=== PATIENT | male | born 1960 | race Caucasian/White ===

== ENCOUNTER 2017-07-02 05:39 | Outpatient (CLI) | payer OTHER ==
[~2017-07-02] VITALS: Ht 182.9 cm; Wt 107.0 kg
[2017-07-02] MEDS ORDERED: BUDE10.2 IH (15:36)
[2017-07-02] MEDS ORDERED: RT-ALBUINH IH (15:36)
[2017-07-02] MEDS ORDERED: DULO20CA PO (15:36)
[2017-07-02] MEDS ORDERED: LISI10TA2 PO (15:36)
[2017-07-02] MEDS ORDERED: GABA600T2 PO (15:36)
[2017-07-02] MEDS ORDERED: AMLO10TA2 PO (15:36)
[2017-07-09] MEDS ORDERED: PANT40TA2 PO (14:04)
[2017-07-09] MEDS ORDERED: SUCR1TAB36 PO (14:04)
== END 2017-07-02 15:37 ==
LOC: PREOP 05:39
PROVIDERS: ATTEND Surgery
DX: Z01.818 Encounter for other preprocedural examination (principal); Z12.11 Encounter for screening for malignant neoplasm of colon; K29.70 Gastritis, unspecified, without bleeding

== ENCOUNTER 2017-07-09 11:54 | Day surgery (SDC) | payer OTHER ==
[~2017-07-09] VITALS: Ht 182.9 cm; Wt 107.0 kg
[~2017-07-09 11:54] MED LIST: AMLO10TA2 PO; BUDE10.2 IH; DULO20CA PO; GABA600T2 PO; LISI10TA2 PO; RT-ALBUINH IH
[2017-07-09] MEDS ORDERED: LACTATED RINGERS 1,000 ML IV ONE (12:15)
[2017-07-09] MEDS ORDERED: LACTATED RINGERS 1,000 ML IV STA (12:17)
[2017-07-09 12:28] VITALS: BP 148/87
[2017-07-09] MEDS ORDERED: HURRICAINE EXT TUBE (BENZOCAINE) XX PRN (12:30)
[2017-07-09] MEDS ORDERED: PROPOFOL INJECTION 50 ML IV ONE (13:25)
[2017-07-09] MEDS ORDERED: MIDAZOLAM 2 MG/2 ML (VERSED) VIAL ONE (13:26)
--- NOTE | 2017-07-09 13:31 | Progress Note-Pre Operative ---
Pre-Operative Progress Note H&P Reviewed The H&P was reviewed, patient examined and no changes noted. Time Seen by Provider: 13:22 Date H&P Reviewed: Jul 09, 2017 Time H&P Reviewed: 13:25 Pre-Operative Diagnosis: Gastritis, Screening Colonoscopy DEWAYNE SIN DO Jul 09, 2017 13:31
--- NOTE | 2017-07-09 13:58 | Progress Note-Post Operative ---
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
--- NOTE | 2017-07-09 14:01 | Endoscopy Discharge Instruct ---
Endo Procedure/Findings Findings 1.: Duodenal Ulcer 2.: Gastric Ulcer 3.: Zafar's Esophagus 4.: Diverticulosis, Internal Hemorrhoids Discharge Instructions - Activity: You might feel a little sleepy until tomorrow. This is due to the medicine you received to relax you. Until tomorrow, you should: NOT drive a car, operate machinery or power tools. NOT drink any alcoholic beverages. NOT make any important decisions or sign importortant papers. Do not return to work until tomorrow, unless otherwise instructed. Resume previous activities tomorrow. Diet: Start by taking liquids. If you tolerate liquids, advance to solid food. Instructions: 1.: Reflux Diet, No ASA/NSAIDS for 1 week, EGD in 6-8 weeks Notify Physician - If you experience excessive bleeding, unusual abdominal pain, fever, or chest pain, contact your doctor immediately. Follow-Up: - I have received and understand the above instructions and will call my doctor if I have any further questions. Patient Signature Date Nurse Signature Other (Relationship) DEWAYNE SIN DO Jul 09, 2017 14:01
[2017-07-09] MEDS ORDERED: PANT40TA2 PO (14:04)
[2017-07-09] MEDS ORDERED: SUCR1TAB36 PO (14:04)
--- NOTE | 2017-07-09 14:06 | Anesthesia-General Post-Op ---
MAC Patient Condition Mental Status/LOC: Same as Preop Cardiovascular: Satisfactory Nausea/Vomiting: Absent Respiratory: Satisfactory Pain: Controlled Complications: Absent Post Op Complications Complications None Follow Up Care/Instructions Patient Instructions None needed. Anesthesiology Discharge Order Discharge Order Patient is doing well, no complaints, stable vital signs, no apparent adverse anesthesia problems. Patient tolerated the sedation and procedure well. BHASKAR VELA DO Jul 09, 2017 14:06
[2017-07-09 14:20] VITALS: BP 138/81
[2017-07-09 14:50] VITALS: BP 145/82
[2017-07-09 14:55] VITALS: BP 145/82
--- NOTE | 2017-07-11 01:08 | OPERATIVE REPORT ---
DATE OF SERVICE: 07/09/2017 PREOPERATIVE DIAGNOSES: 1. Heartburn. 2. Screening colonoscopy. POSTOPERATIVE DIAGNOSES: 1. Duodenal ulcer. 2. Gastric ulcer. 3. Esophagitis with possible Zafar's esophagus. 4. Diverticula. 5. Internal hemorrhoids. 6. Poor prep. PROCEDURES: 1. EGD with biopsy. 2. Colonoscopy. SURGEON: Dr. Moya. EMBEDDED LINUX ENGINEER: None. ANESTHESIA: IV sedation by the STRUCTURAL DRAFTSMAN. BLOOD LOSS: Scant. SPECIMENS: 1. One duodenal biopsy. 2. One gastric biopsy. 3. One esophageal biopsy at the GE junction. INDICATION FOR PROCEDURE: The patient is a 57-year-old male who has never had a colonoscopy and needs one for screening. He also has complaints of heartburn and has taken medication for heartburn in the past. He does not think it helped and needed EGD as well. FINDINGS: The patient had what looked like possibly Zafar's esophagus. He also had few small ulcers in the duodenum as well as one large when nothing bleeding at this time. He also had some small ulcers in the antrum as well as the body of the stomach and then had some creeping up of the GE junction, which looked like possibly Zafar's esophagus. When looking in the colon, the patient had some diverticula. He also had some internal hemorrhoids, but he had a very poor prep. There was formed fecal material throughout the colon all the way from the rectum and sigmoid all the way to the ascending colon, could not get clear this out. PROCEDURE NOTE: After informed consent was obtained, the patient was brought to the endoscopy suite, placed in the bed in left lateral decubitus position. He was administered IV sedation by STRUCTURAL DRAFTSMAN who then monitored his vital signs the entire time, heart rate, blood pressure and pulse ox. The scope was inserted down the mouth into the esophagus and down to the GE junction noted some creeping up of the Z-line. Pushed into the stomach and then in the stomach in the antrum noted some ulcers firstly in the first portion of duodenum and saw 2 or 3 small ulcers and 1 large ulcer that looked like a blood in the past that was not currently bleeding and there may have been some little bit of oozing of blood in the stomach. It looked like there was a little bit of blood. Also noted some ulcers in the stomach around the antrum as well as up in the cardia. Elected to do a biopsy in the duodenum, did a biopsy in the duodenum and then did a biopsy of antrum. Then elected to pull back up, saw possibly a small hiatal hernia. Did a biopsy of the GE junction to see to rule out Zafar's esophagus and then pulled the scope up the esophagus and out the mouth. The patient tolerated this part of procedure. Switched gloves and switched cameras and went down below to perform the colonoscopy, inserted the scope noted a little bit of fecal material in the rectum and then pushed pass this into the sigmoid noted diverticula. Pictures were taken, but the patient continued to have formed fecal material. I was able to go to the outside of fecal material all the way up into the ascending colon thought I saw the cecum, but there was continued formed fecal material throughout the colon could not get this to clear tried to suction it up, tried to break it up with a saline flush, could not get this to push to washout and so at this point removed the scope gently up the ascending colon, hepatic flexure down the transverse colon, past the splenic flexure and descending colon then down into the sigmoid, noted some internal hemorrhoids, but again unable to really clear the colon because of the retained fecal material. This was a very poor prep. The scope was removed. The patient tolerated the procedure. He was recovered in the endoscopy suite. Job ID: [id number] DocumentID: [id number] Dictated Date: 07/10/2017 15:05:56 Manager Of Program Date: 07/11/2017 00:27:22 Dictated By: DO KALINA ESQUIVEL
== END 2017-07-09 14:55 | disposition home or self-care (01) ==
LOC: ENDO 11:54
PROVIDERS: ATTEND Surgery
DX: Z12.11 Encounter for screening for malignant neoplasm of colon (principal); K26.9 Duodenal ulcer, unspecified as acute or chronic, without hemorrhage or perforation; K25.9 Gastric ulcer, unspecified as acute or chronic, without hemorrhage or perforation; K21.0 Gastro-esophageal reflux disease with esophagitis; K57.30 Diverticulosis of large intestine without perforation or abscess without bleeding; K64.8 Other hemorrhoids; I10 Essential (primary) hypertension; F17.210 Nicotine dependence, cigarettes, uncomplicated; G62.9 Polyneuropathy, unspecified; F32.9 Major depressive disorder, single episode, unspecified
CPT/HCPCS: 88305; 88342

== ENCOUNTER 2017-07-29 05:51 | Outpatient (CLI) | payer OTHER ==
[~2017-07-29] VITALS: Ht 182.9 cm; Wt 107.0 kg
[~2017-07-29 05:51] MED LIST changes: +PANT40TA2 PO; +SUCR1TAB36 PO
[2017-07-29] MEDS ORDERED: DULO40CA2 PO (15:09)
[2017-07-29] MEDS ORDERED: LISI40TA PO (15:09)
== END 2017-07-29 15:12 ==
LOC: PREOP 05:51
PROVIDERS: ATTEND Surgery
DX: Z01.818 Encounter for other preprocedural examination (principal); Z12.11 Encounter for screening for malignant neoplasm of colon

== ENCOUNTER 2017-08-12 07:57 | Day surgery (SDC) | payer OTHER ==
[~2017-08-12] VITALS: Ht 182.9 cm; Wt 107.0 kg
[~2017-08-12 07:57] MED LIST changes: +DULO40CA2 PO; +LISI40TA PO
[2017-08-12] MEDS ORDERED: LACTATED RINGERS 1,000 ML IV ONE (08:05)
[2017-08-12] MEDS ORDERED: LACTATED RINGERS 1,000 ML IV STA (08:08)
[2017-08-12 08:18] VITALS: BP 127/84
--- NOTE | 2017-08-12 08:38 | Progress Note-Pre Operative ---
Pre-Operative Progress Note H&P Reviewed The H&P was reviewed, patient examined and no changes noted. Time Seen by Provider: 08:31 Date H&P Reviewed: August 12, 2017 Time H&P Reviewed: 08:33 Pre-Operative Diagnosis: Screening colonoscopy, Diverticula, Poor prep DEWAYNE SIN DO August 12, 2017 08:38
[2017-08-12] MEDS ORDERED: PROPOFOL INJECTION 50 ML IV ONE (09:03)
[2017-08-12] MEDS ORDERED: MIDAZOLAM 2 MG/2 ML (VERSED) VIAL ONE ×2 (09:04)
[2017-08-12] MEDS ORDERED: proPOfol 200 MG/20 ML (DIPRIVAN) VIAL IV ONE ×3 (09:34→09:57)
--- NOTE | 2017-08-12 10:13 | Progress Note-Post Operative ---
Post-Operative Progess Note Surgeon (s)/Sewing Machine Maintenance Mechanic (s) Surgeon DEWAYNE SIN DO Sewing Machine Maintenance Mechanic: none Pre-Operative Diagnosis Screening colonoscopy, Diverticula, Poor prep Post-Operative Diagnosis Colon Polyps Diverticula Int Hemorrhoids Procedure & Operative Findings Date of Procedure 08/12/17 Procedure Performed/Findings Colonoscopy with snare polypectomy Anesthesia Type IV sedation by ASSEMBLER CONVERTIBLE TOP Estimated Blood Loss Estimated blood loss (mL): scant Specimens/Packing Specimens Removed Cecal polyp Descending colon polyp Sigmoid colon polyp Rectal polyp DEWAYNE SIN DO August 12, 2017 10:13
--- NOTE | 2017-08-12 10:14 | Endoscopy Discharge Instruct ---
Endo Procedure/Findings Findings 1.: Polyp 2.: Diverticulosis 3.: Internal Hemorrhoids Discharge Instructions - Activity: You might feel a little sleepy until tomorrow. This is due to the medicine you received to relax you. Until tomorrow, you should: NOT drive a car, operate machinery or power tools. NOT drink any alcoholic beverages. NOT make any important decisions or sign importortant papers. Do not return to work until tomorrow, unless otherwise instructed. Resume previous activities tomorrow. Diet: Start by taking liquids. If you tolerate liquids, advance to solid food. Make appointment for one week. Notify Physician - If you experience excessive bleeding, unusual abdominal pain, fever, or chest pain, contact your doctor immediately. Follow-Up: - I have received and understand the above instructions and will call my doctor if I have any further questions. Patient Signature Date Nurse Signature Other (Relationship) DEWAYNE SIN DO August 12, 2017 10:14
[2017-08-12 10:30] VITALS: BP 116/72
[2017-08-12 10:35] VITALS: BP 116/72
[2017-08-12 10:40] VITALS: BP 117/90
[2017-08-12 10:45] VITALS: BP 124/75
[2017-08-12 11:20] VITALS: BP 124/75
--- NOTE | 2017-08-12 11:48 | Anesthesia-General Post-Op ---
MAC Patient Condition Mental Status/LOC: Same as Preop Cardiovascular: Satisfactory Nausea/Vomiting: Absent Respiratory: Satisfactory Pain: Controlled Complications: Absent Post Op Complications Complications None Follow Up Care/Instructions Patient Instructions None needed. Anesthesiology Discharge Order Discharge Order Patient is doing well, no complaints, stable vital signs, no apparent adverse anesthesia problems. No complications reported per nursing. EWELINA FINCH CRNA August 12, 2017 11:48
--- NOTE | 2017-08-12 15:07 | OPERATIVE REPORT ---
DATE OF SERVICE: PREOPERATIVE DIAGNOSES: Screening colonoscopy, history diverticula as well as a left lower quadrant pain. POSTOPERATIVE DIAGNOSES: 1. Colon polyps. 2. Diverticula. 3. Internal hemorrhoids. PROCEDURE: Colonoscopy with snare polypectomy. SURGEON: Alonso Moya DO. LOOP TACKER: None. ANESTHESIA: IV sedation by ACOUSTICAL ENGINEER. SPECIMEN: One polyp from the cecum, one polyp from the descending colon, one polyp from the sigmoid colon and one polyp from the rectum. BLOOD LOSS: Scant. FLUIDS: Per anesthesia. POSTOPERATIVE CONDITION: Stable. INDICATION FOR PROCEDURE: The patient is a 57-year-old male who needed a screening colonoscopy, had one attempted, but had retained fecal material, had to have repeated. FINDINGS: During this one, the patient had large diverticula, multiple throughout the colon. He also had 4 polyps, one just outside the cecum, one at more proximal portion of the descending colon, one in the sigmoid colon and then one in the rectum. He also had some small internal hemorrhoids. PROCEDURE NOTE: After informed consent was obtained, the patient was brought to the endoscopy suite and placed in the bed in the left lateral decubitus position. He was administered IV sedation by the ACOUSTICAL ENGINEER who then monitored his vitals the entire time, heart rate, blood pressure and pulse ox and the scope was inserted, pushed all the way to about 140 cm, able to get to the cecum, took a picture of the appendiceal orifice and then slowly withdrew the scope insufflating to look circumferentially at the truong looking at the cecum and then just outside the cecal cap, saw a polyp, took a picture of this and then did a snare polypectomy. Able to suction this up and then able to continue up the ascending colon to the hepatic flexure, then down the transverse colon to the splenic flexure and just past the splenic flexure, into the descending colon, saw another polyp, did a snare polypectomy then continued down to the base of the descending colon and the start of the sigmoid colon, saw another polyp, did another snare polypectomy. This again throughout here, there were multiple diverticula continued down and then into the rectum, saw another polyp, did a snare polypectomy of this and then into the rectal vault, retroflexed in the rectal vault, took a picture of internal hemorrhoids and then removed the scope. The patient tolerated the procedure and he was recovered in the endoscopy suite. Job ID: [id number] DocumentID: [id number] Dictated Date: 08/12/2017 10:12:09 Paper Twister Date: 08/12/2017 15:07:05 Dictated By: ALONSO MOYA DO
== END 2017-08-12 11:20 | disposition home or self-care (01) ==
LOC: ENDO 07:57
PROVIDERS: ATTEND Surgery
DX: Z12.11 Encounter for screening for malignant neoplasm of colon (principal); K63.5 Polyp of colon; K57.30 Diverticulosis of large intestine without perforation or abscess without bleeding; I10 Essential (primary) hypertension; J43.9 Emphysema, unspecified; G62.9 Polyneuropathy, unspecified; F17.210 Nicotine dependence, cigarettes, uncomplicated; K26.9 Duodenal ulcer, unspecified as acute or chronic, without hemorrhage or perforation; K25.9 Gastric ulcer, unspecified as acute or chronic, without hemorrhage or perforation; K22.70 Barrett's esophagus without dysplasia; Z79.899 Other long term (current) drug therapy
CPT/HCPCS: 88305

== ENCOUNTER 2017-12-17 05:40 | Outpatient (CLI) | payer OTHER ==
[~2017-12-17] VITALS: Ht 182.9 cm; Wt 107.0 kg
[~2017-12-17 05:40] MED LIST changes: -AMLO10TA2 PO; +AMLO10TA6 PO
[2017-12-17] MEDS ORDERED: HYDR25TA4 PO (10:45)
[2017-12-17] MEDS ORDERED: TAMS0.4C2 PO (10:45)
[2017-12-17] MEDS ORDERED: CYCL10TA9 PO (10:45)
== END 2017-12-17 10:50 | disposition home or self-care (01) ==
LOC: PREOP 05:40
PROVIDERS: ATTEND Surgery
DX: Z01.818 Encounter for other preprocedural examination (principal)

== ENCOUNTER 2017-12-22 12:19 | Day surgery (SDC) | payer OTHER ==
[~2017-12-22] VITALS: Ht 182.9 cm; Wt 107.0 kg
[~2017-12-22 12:19] MED LIST changes: +CYCL10TA9 PO; +HYDR25TA4 PO; +TAMS0.4C2 PO
[2017-12-22] MEDS ORDERED: LACTATED RINGERS 1,000 ML IV STA (12:25)
[2017-12-22] MEDS ORDERED: LACTATED RINGERS 1,000 ML IV ONE (12:25)
[2017-12-22] MEDS ORDERED: HURRICAINE EXT TUBE (BENZOCAINE) XX PRN (12:30)
[2017-12-22 12:36] VITALS: BP 121/82
[2017-12-22] MEDS ORDERED: MIDAZOLAM 2 MG/2 ML (VERSED) VIAL ONE (13:36)
[2017-12-22] MEDS ORDERED: proPOfol 200 MG/20 ML (DIPRIVAN) VIAL IV ONE (13:36)
--- NOTE | 2017-12-22 13:39 | Progress Note-Pre Operative ---
Pre-Operative Progress Note H&P Reviewed The H&P was reviewed, patient examined and no changes noted. Time Seen by Provider: 13:35 Date H&P Reviewed: Dec 22, 2017 Time H&P Reviewed: 13:35 Pre-Operative Diagnosis: Hx of Zafar's Esophagus DEWAYNE SIN DO Dec 22, 2017 13:39
--- NOTE | 2017-12-22 14:01 | Progress Note-Post Operative ---
Post-Operative Progess Note Surgeon (s)/Senior Internal Auditor (s) Surgeon DEWAYNE SIN DO Senior Internal Auditor: none Pre-Operative Diagnosis Hx of Zafar's Esophagus Post-Operative Diagnosis Same plus Gastric Ulcers and Gastritis Procedure & Operative Findings Date of Procedure 12/22/17 Procedure Performed/Findings EGD with biopsy Anesthesia Type IV sedation by GRINDER SET UP OPERATOR EXTERNAL Estimated Blood Loss Estimated blood loss (mL): scant Specimens/Packing Specimens Removed Antral bx GE jxn bx, 4 quadrants DEWAYNE SIN DO Dec 22, 2017 14:00
--- NOTE | 2017-12-22 14:02 | Endoscopy Discharge Instruct ---
Endo Procedure/Findings Findings 1.: Zafar's Esophagus 2.: Gastric Ulcer Discharge Instructions - Activity: You might feel a little sleepy until tomorrow. This is due to the medicine you received to relax you. Until tomorrow, you should: NOT drive a car, operate machinery or power tools. NOT drink any alcoholic beverages. NOT make any important decisions or sign importortant papers. Do not return to work until tomorrow, unless otherwise instructed. Resume previous activities tomorrow. Diet: Start by taking liquids. If you tolerate liquids, advance to solid food. Make an appointment for 1 week Instructions: 1.: EGD in 6-8 weeks Notify Physician - If you experience excessive bleeding, unusual abdominal pain, fever, or chest pain, contact your doctor immediately. Follow-Up: - I have received and understand the above instructions and will call my doctor if I have any further questions. Patient Signature Date Nurse Signature Other (Relationship) DEWAYNE SIN DO Dec 22, 2017 14:02
[2017-12-22 14:20] VITALS: BP 134/76
[2017-12-22 14:35] VITALS: BP 121/82
[2017-12-22 15:23] VITALS: BP 121/82
--- NOTE | 2017-12-22 21:15 | OPERATIVE REPORT ---
DATE OF SERVICE: 12/22/2017 PREOPERATIVE DIAGNOSIS: Zafar's esophagus. POSTOPERATIVE DIAGNOSES: 1. Gastric ulcer. 2. Gastritis. 3. Zafar's esophagus. PROCEDURE: EGD with biopsy. SURGEON: Alonso Moya DO COMMERCIAL MANAGEMENT ACCOUNTANT: None. ANESTHESIA: IV sedation by the JUNIOR DESIGNER. SPECIMENS: 1. Biopsy of gastric ulcer. 2. Biopsies at the GE junction at the 12 o'clock, 3 o'clock, 6 o'clock and 9 o'clock position. BLOOD LOSS: Scant. FLUIDS: Per anesthesia. POSTOPERATIVE CONDITION: Stable. INDICATION FOR PROCEDURE: The patient is a 57-year-old male who has a history of Zafar's esophagus and needs an EGD to recheck this diagnosis. FINDINGS: The patient had some gastritis and looked like gastric ulcers. Pictures were taken. He also looked like he had possibly worsening of the Zafar's esophagus at the GE junction. Biopsy was done. He also had a small hiatal hernia. PROCEDURE NOTE: After informed consent was obtained, the patient was brought to the endoscopy suite, placed in the bed left in left lateral decubitus position, administered IV sedation by the JUNIOR DESIGNER, then monitored his vitals the entire time, heart rate, blood pressure and pulse ox. A scope was inserted down the mouth through the esophagus and into the stomach, pushed towards the pylorus and then noted some ulcers as well as gastritis and took a picture of this. Pushed into the duodenum, duodenum looked fine, took a picture of this, backed up into the antrum. I did a biopsy of one of the ulcers, then pulled the scope back, retroflexed, saw small hiatal hernia and then pulled into the esophagus. The GE junction had some pretty severe creeping up of the Z-line. Biopsies were done at 3, 6, 9 and 12 o'clock position to be sent to see if the Zafar's esophagus had gotten worse. The rest of the esophagus looked good, pulled the scope out. The patient tolerated the procedure and he was recovered in the endoscopy suite. Job ID: [id number] DocumentID: [id number] Dictated Date: 12/22/2017 18:13:23 Industrial Organizational Psychologist Date: 12/22/2017 21:14:32 Dictated By: ALONSO MOYA DO
== END 2017-12-22 14:50 | disposition home or self-care (01) ==
LOC: ENDO 12:19
PROVIDERS: ATTEND Surgery
DX: K22.70 Barrett's esophagus without dysplasia (principal); K25.9 Gastric ulcer, unspecified as acute or chronic, without hemorrhage or perforation; K29.70 Gastritis, unspecified, without bleeding; K44.9 Diaphragmatic hernia without obstruction or gangrene; I10 Essential (primary) hypertension; G62.9 Polyneuropathy, unspecified; J43.9 Emphysema, unspecified; J45.909 Unspecified asthma, uncomplicated; F32.9 Major depressive disorder, single episode, unspecified; K21.9 Gastro-esophageal reflux disease without esophagitis; F17.210 Nicotine dependence, cigarettes, uncomplicated; Z79.899 Other long term (current) drug therapy

== ENCOUNTER → 2018-09-18 | Outpatient (CLI) | payer OTHER ==
[~2018-09-18] MED LIST changes: -AMLO10TA6 PO; +AMLO10TA7 PO; -GABA600T2 PO; +GBPN600T PO
--- NOTE | 2018-09-18 17:36 | Diagnostic Imaging Report ---
PROCEDURE: US bilateral lower extremity arterial. TECHNIQUE: Multiple real-time grayscale images are obtained through both lower extremity arterial systems with color Doppler imaging and color Doppler spectral analysis. DATE: September 18, 2018. INDICATION: 58-year-old male, peripheral vascular disease. No additional provided history. COMPARISON: None. FINDINGS: Peak systolic velocity in the right common femoral artery measures 158 cm/s with normal triphasic waveform. Peak systolic velocity in the right deep femoral artery measures 113 cm/s. Peak systolic velocity in the right proximal superficial femoral artery measures 132 cm/s, 138 cm/s in the mid right superficial femoral artery and 120 cm/s distally. Peak systolic left velocity in the right popliteal artery measures 102 cm/s. Peak systolic velocity in the right distal posterior tibial artery measures 108 cm/s. Peak systolic velocity in the distal right anterior tibial artery measures 138 cm/s with loss of normal triphasic waveform. Peak systolic velocity in the right dorsalis pedis artery measures 68 cm/s. Peak systolic velocity in left common femoral artery measures 120 cm/s with normal triphasic waveform. Peak systolic velocity in the left deep femoral artery measures 109 cm/s. Peak systolic velocity in the left proximal superficial femoral artery measures 119 cm/s, 115 cm/s in the mid left superficial femoral artery and 115 cm/s distally. Peak systolic velocity in the left popliteal artery measures 103 cm/s. Peak systolic velocity in the left distal posterior tibial artery measures 140 cm/s. Peak systolic velocity in the left distal anterior tibial artery measures 150 cm/s. Peak systolic velocity in the left dorsalis pedis artery measures 138 cm/s. There are normal triphasic waveforms throughout the visualized left lower extremity arterial vasculature. IMPRESSION: Patent's visualized bilateral lower extremity arterial vasculature without significantly elevated velocities. There is loss of normal triphasic waveforms beginning at the level of the right distal anterior tibial artery. There are normal triphasic waveforms throughout the imaged left lower extremity arterial vasculature. Dictated by: Dictated on workstation # [id number]
== END ==
LOC: RAD 14:06
PROVIDERS: ATTEND Internal Medicine Interventional Cardiology
DX: I73.9 Peripheral vascular disease, unspecified (principal)
CPT/HCPCS: 93925

== ENCOUNTER → 2018-09-24 | Outpatient (CLI) | payer OTHER | LOC: CARD 10:51 | PROVIDERS: ATTEND Internal Medicine Interventional Cardiology | DX: I35.2 Nonrheumatic aortic (valve) stenosis with insufficiency (principal); I10 Essential (primary) hypertension; E78.2 Mixed hyperlipidemia; J44.1 Chronic obstructive pulmonary disease with (acute) exacerbation; I73.9 Peripheral vascular disease, unspecified; Z72.0 Tobacco use | CPT/HCPCS: 93306; 93922 ==

== ENCOUNTER 2018-10-08 08:07 | Outpatient (RCR) | payer OTHER ==
[~2018-10-08 08:07] MED LIST changes: -CATHETER FLUSH 10 ML SYR IV PRN; -REGADENOSON 0.4 MG/5 ML SYR (LEXISCAN) IV ONE
[2018-10-08] MEDS ORDERED: REGADENOSON 0.4 MG/5 ML SYR (LEXISCAN) IV ONE ×2 (08:45→09:11)
[2018-10-10 14:06] VITALS: BP 193/95
--- NOTE | 2018-10-10 14:06 | Cardiology Stress Test Report ---
Stress Test Report Type of NM Stress Test: Test Type: LEXISCAN 0.4MG/5ML Date of Procedure/Referring: Date of Procedure: Oct 08, 2018 PCP Melvin Dozier MD Admitting Physician No,Local Physician Indications: Chest pain Baseline Heart Rate: 60 Baseline Blood Pressure: Blood Pressure Systolic: 193 Blood Pressure Diastolic: 95 Baseline EKG: Baseline EKG: sinus rhythm Summary & Conclusion: Summary: The patient was brought to the stress lab after informed consent was taken. St ress test was performed according to the Lexiscan protocol. 0.4 mg of IV Lexiscan was given. Low-grade exercise was performed. Baseline EKG showed sinus rhythm at 60 BPM. Initial blood pressure was 193/95 mmHg. Maximum heart rate was 118 bpm and blood pressure 214/107 mmHg. Patient did not have any chest pain, arrhythmias or ST segment changes during the stress test. 10.2 mCi of Myoview were given for rest imaging and 30 mCi of Myoview given for stress imaging. Transient ischemic dilatation score 1.01 , EF 60 percent. Normal wall motion. Mild inferior apical reversible defect. Conclusion: Pharmacological stress test was negative for ischemia. Normal LV function with no wall motion abnormalities. Mild inferior apical reversible defect. Clinical correlation is recommended. Melvin DOZIER MD Oct 10, 2018 2:06 pm
[2018-11-26] MEDS ORDERED: CEPH500T PO (12:41)
[2018-11-27] MEDS ORDERED: ASPI-983 PO (11:34)
[2018-11-27] MEDS ORDERED: ATOR80TA76 PO (11:34)
[2018-11-27] MEDS ORDERED: METO-387 PO (11:34)
[2018-11-27] MEDS ORDERED: TICA90TA PO (11:34)
== END 2019-01-06 | disposition home or self-care (01) ==
LOC: CARD 08:07
PROVIDERS: ATTEND Internal Medicine Interventional Cardiology
DX: R00.2 Palpitations (principal)

== ENCOUNTER → 2018-10-08 | Outpatient (CLI) | payer OTHER ==
[~2018-10-08] MED LIST changes: +CATHETER FLUSH 10 ML SYR IV PRN; +REGADENOSON 0.4 MG/5 ML SYR (LEXISCAN) IV ONE
[2018-10-08 09:42] VITALS: BP 193/95
[2018-10-08 09:49] VITALS: BP 206/106
== END ==
LOC: CARD 08:06
PROVIDERS: ATTEND Internal Medicine Interventional Cardiology
DX: I35.0 Nonrheumatic aortic (valve) stenosis (principal); I35.1 Nonrheumatic aortic (valve) insufficiency; I10 Essential (primary) hypertension; E78.2 Mixed hyperlipidemia; J44.1 Chronic obstructive pulmonary disease with (acute) exacerbation; I73.9 Peripheral vascular disease, unspecified; Z72.0 Tobacco use
CPT/HCPCS: 78452; 93017

== ENCOUNTER 2018-11-26 11:35 | Day surgery (SDC) | payer OTHER ==
[2018-11-26] VITALS (9 sets, daily range): BP systolic 134–193; BP diastolic 86–106
[~2018-11-26] VITALS: Ht 182.9 cm; Wt 98.9 kg
[2018-11-26] MEDS ORDERED: HEParin (CATH LAB) 2,000 ML IV ONE (11:52)
[2018-11-26] MEDS ORDERED: LIDOCAINE 1% INJ 20 ML 20 ML VIAL ONE (11:52)
[2018-11-26] MEDS ORDERED: NS IV 1000 ML 1,000 ML ONE (11:52)
[2018-11-26] MEDS ORDERED: NS IV 1000 ML 1,000 ML IV SCH (12:04)
[2018-11-26 12:32] LABS: HEMOGLOBIN 15.3 G/DL (13.3-17.7); RED CELL DISTRIBUTION WIDTH 13.7 % (10.0-14.5); WHITE BLOOD COUNT 11.6 10^3/uL (4.3-11.0)
[2018-11-26] MEDS ORDERED: CEPH500T PO (12:41)
[2018-11-26 12:44] LABS: PROTHROMBIN TIME PATIENT 13.1 SEC (12.2-14.7)
[2018-11-26 12:50] LABS: ALANINE AMINOTRANSFERASE 20 U/L (0-55); ALBUMIN 4.5 GM/DL (3.2-4.5); ALKALINE PHOSPHATASE 91 U/L (40-136); BILIRUBIN,TOTAL 0.5 MG/DL (0.1-1.0); BUN/CREATININE RATIO 24; CALCIUM 9.4 MG/DL (8.5-10.1); CARBON DIOXIDE 24 MMOL/L (21-32); CHLORIDE 108 MMOL/L (98-107); CREATININE SERUM 0.85 MG/DL (0.60-1.30); GFR ESTIMATED > 60; GLUCOSE 105 MG/DL (70-105); SODIUM 141 MMOL/L (135-145); TOTAL PROTEIN 7.7 GM/DL (6.4-8.2)
[2018-11-26] MEDS ORDERED: fentaNYL INJECTION 100 MCG/2 ML AMP ONE (15:17)
[2018-11-26] MEDS ORDERED: HEParin 1000 UNIT/ML (10ML VIAL) FOR BOLUS ONE (15:17)
[2018-11-26] MEDS ORDERED: VERAPAMIL 5 MG/2 ML (CALAN) VIAL IV ONE (15:17)
[2018-11-26] MEDS ORDERED: NITRO DRIP 25000 MCG/D5W 250 ML IV ONE (15:17)
[2018-11-26] MEDS ORDERED: MIDAZOLAM 5 MG/5 ML (VERSED) VIAL ONE (15:17)
[2018-11-26] MEDS ORDERED: ASPIRIN 325 MG (5 GR) TABLET ONE (15:50)
[2018-11-26] MEDS ORDERED: TICAGRELOR 90 MG TABLET (BRILINTA) PO ONE (15:50)
--- NOTE | 2018-11-26 16:17 | Cardiac Procedure Note-CS/ASA ---
Pre-Procedure Note Pre-Op Procedure Note H&P Reviewed The H&P was reviewed, patient examined and no changes noted. Date H&P Reviewed: Nov 26, 2018 Time H&P Reviewed: 13:00 Conscious Sedation Pre-Proced Time 13:00 ASA Score 3 For ASA 3 and 4: Consider anesthesia and medical clearance. Also, for patients with a history of failed moderate sedation consider anesthesia. Airway Lungs Heart ASA score ASA 1: a normal healthy patient ASA 2: a patient with a mild systemic disease (mid diabetes, controlled hypertension, obesity ASA 3: a patient with a severe systemic disease that limits activity (angina, COPD, prior Myocardial infarction) ASA 4: a patient with an incapacitating disease that is a constant threat to life (CHF, renal failure) ASA 5: a moribund patient not expected to survive 24 hrs. (ruptured aneurysm) ASA 6: a declared brain- patient whose organs are being harvested. For emergent operations, add the letter E after the classification Mallampati Classification Grade 1 Sedation Plan Analgesia, Amnesia, Plan communicated to team members, Discussed options with patient/fam, Discussed risks with patient/fam The patient is an appropriate candidate to undergo the planned procedure, sedation, and anesthesia. The patient immediately re-assessed prior to indication. Melvin YOUSSEF MD Nov 26, 2018 16:17
--- NOTE | 2018-11-26 16:22 | Coronary Angiography & PCI ---
Coronary Angiography & PCI DATE OF PROCEDURE: 11/26/18 INDICATION: chest pain, abnormal nuclear stress test. PREOPERATIVE DIAGNOSIS: chest pain, abnormal nuclear stress test. POSTOPERATIVE DIAGNOSIS: severe distal RCA stenosis treated successfully with a drug-eluting stent. HISTORY: this is a 58-year-old gentleman who presented with chest pain. Nuclear stress test showed evidence of inferior apical ischemia. Therefore, the patient was scheduled for coronary angiography. PROCEDURES PERFORMED: 1.Coronary angiography. 2.Left heart catheterization. 3.PCI to the distal RCA with a drug-eluting stent. COMPLICATIONS: None. SPECIMENS: None. ESTIMATED BLOOD LOSS: 10 mL ANESTHESIA: Conscious sedation ANTICOAGULATION: IV heparin CONTRAST: 100 mL. FLUOROSCOPY: 5.9 minutes. FLOUROSCOPY DOSE: 938 mgy. PROCEDURE DETAILS: The patient is a 58 male and was brought to the laborer/grade check after informed consent was taken. All the risks and complications were explained in detail; this included the risk of bleeding, vascular damage, stroke, GA and even . The patient was draped and prepped in the usual sterile fashion. Access was gained in the right radial artery with a 6 Indonesian sheath. Coronary angiography and left heart catheterization was performed with the [place] catheter. FINDINGS: 1.Left main: patent. 2.LAD: luminal irregularities. 3.Left circumflex artery: luminal irregularities. 4.RCA: mild proximal disease. Severe distal RCA stenosis. Stenosis severity 90 percent. Large dominant RCA. 5.Left heart catheterization: LV pressure 169/13 mmHg. LVEDP 18 mmHg. Aortic pressure 144/78 mmHg. Normal LV function with no wall motion abnormalities. No gradient across the aortic valve. RECOMMENDATIONS: PCI to the distal RCA is recommended. INTERVENTION DETAILS: JR4 guide catheter, whisper extra-support guidewire, IV heparin for anticoagulation. ACT was done once which was 230 seconds. 325 mg of aspirin and one 80 mg of Brilinta bolus was given before the PCI. The lesion was crossed with the whisper wire and the tip of the wire was placed in the PDA. Direct stenting was done with a resolute drug-eluting stent 4.0 x 12 mm stent which was placed at 15 berna for 32 seconds. Excellent results with no residual stenosis. Mid RCA spasm treated with 300 g of intracoronary nitroglycerin with complete resolution. Wire was taken out and post-angiogram showed excellent re sults with GARTH 3 flow. Patient tolerated procedure well and did not have any complication. CONCLUSIONS: 1. severe distal RCA stenosis treated successfully with one drug-eluting stent. 2. Dual antiplatelet therapy for at least 1 year. 3. Continue aggressive secondary prevention measures. Emerald Dozier MD, FACP, FACC, [facility] Interventional Cardiology Melvin DOZIER MD Nov 26, 2018 16:22
--- NOTE | 2018-11-26 16:35 | History & Physicial-Cardiolgy ---
HPI-Cardiology Cardiology Consultation: Date of Consultation 11/26/18 Date of Admission 11/26/2018 Attending Physician Melvin Dozier MD Admitting Physician Belle,Local Physician Consulting Physician Melvin DOZIER MD HPI: Time Seen by a Provider: 14:00 Chief Complaint: chest pain this is a 58-year-old gentleman who presented with chest pain. Nuclear stress test showed evidence of inferior apical ischemia. Therefore, the patient was scheduled for coronary angiography. Review of Systems-Cardiology Review of Systems Constitutional: As described under HPI; No As described under HPI, No no symptoms reported, No chills, No fever, No lightheadedness Eyes: No As described under HPI, No no symptoms reported, No blindness, No blurred vision, No contact lenses, No drainage, No decreased acuity, No foreign body sensation, No pain, No vision change Ears/Nose/Throat: No As described under HPI, No no symptoms reported, No chronic hearing loss, No ear discharge, No ear pain, No nasal drainage, No ulcerations Respiratory: No no symptoms reported; As described under HPI; No As described under HPI, No cough, No orthopnea, No shortness of breath, No SOB with excertion Cardiovascular: No no symptoms reported; As described under HPI; No As described under HPI; chest pain; No edema, No irregular heart rate, No lightheadedness, No palpitations Gastrointestinal: No no symptoms reported, No As described under HPI, No abdomen distended, No abdominal pain, No blood streaked bowels, No constipation, No diarrhea, No nausea, No vomiting, No stool coloration changes Genitourinary: No As described under HPI, No burning, No dysuria, No discharge, No frequency, No flank pain, No hematuria, No urgency Skin: No rash, No skin related problems, No ulcerations Psychiatric/Neurological: No anxiety, No depression, No seizure, No focal weakness, No syncope Hematologic: No bleeding abnormalities [id number] Hx Patient Social History Alcohol Use: Past History Recreational Drug Use: Yes (mj) Smoking Status: Current Everyday Smoker Type Used: Cigarettes 2nd Hand Smoke Exposure: Yes Recent Foreign Travel: No Immunizations Up To Date Date of Pneumonia Vaccine: Nov 26, 2016 Date of Influenza Vaccine: Dec 02, 2016 Past Medical History PMH As described under Assessment. Allergies and Home Medications Allergies Coded Allergies: No Known Drug Allergies (Verified , 12/17/17) Home Medications Albuterol Sulfate 1 Puff Puff, 2 PUFF IH Q4H PRN for SHORTNESS OF BREATH, (Reported) 1 PUFF = 90 MCG Amlodipine Besylate 10 Mg Tablet, 10 MG PO DAILY, (Reported) Budesonide/Formoterol Fumarate 10.2 Gm Hfa.aer.ad, 2 PUFF IH BID, (Reported) Cyclobenzaprine HCl 10 Mg Tablet, 10 MG PO QID, (Reported) Duloxetine HCl 40 Mg Capsule.dr, 40 MG PO DAILY, (Reported) Hydrochlorothiazide 25 Mg Tablet, 12.5 MG PO DAILY, (Reported) Lisinopril 40 Mg Tablet, 40 MG PO DAILY, (Reported) Pantoprazole Sodium 40 Mg Tablet.dr, 40 MG PO DAILY Prescribed by: DEWAYNE SIN on 07/09/17 1404 Sucralfate 1 Gm Tablet, 1 GM PO QID Prescribed by: DEWAYNE SIN on 07/09/17 1404 Patient Home Medication List Home Medication List Reviewed: Yes Physical Exam-Cardiology Physical Exam Vital Signs/I&O 11/26/18 12:29 Temp 37.1 Pulse 62 Resp 14 B/P (MAP) 155/87 Pulse Ox 97 Capillary Refill : Constitutional: appears stated age, AAO x 3; No apparent distress; well- developed, well-nourished HEENT: PERRL; No discharge; hearing is well preserved, oral hygience is good; No ulceration, No xanthelasmas are seen Neck: No carotid bruit; carotid pulses are 2 + bilaterally Respiratory: chest is bilaterally symmetric, lungs clear to auscultation Cardiovascular: regular rate-rhythm, S1 and S2 Gastrointestinal: soft, audible bowel sounds; No spleenomegaly Rectal: deferred Extremities: normal range of motion, non-tender, normal inspection; No clubbing, No cyanosis; no lower extremity edema bilateral; No significant edema Neurologic/Psychiatric: no motor/sensory deficits, alert, normal mood/affect, oriented x 3, power is 5/5 both on sides Skin: normal color; No rash, No ulcerations Data Review Labs Laboratory Tests 11/26/18 12:20: White Blood Count 11.6H, Red Blood Count 5.10, Hemoglobin 15.3, Hematocrit 46, Mean Corpuscular Volume 89, Mean Corpuscular Hemoglobin 30, Mean Corpuscular Hemoglobin Concent 34, Red Cell Distribution Width 13.7, Platelet Count 331, Mean Platelet Volume 9.0, Prothrombin Time 13.1, INR Comment 1.0, Activated Partial Thromboplast Time 27, Sodium Level 141, Potassium Level 4.0, Chloride Level 108H, Carbon Dioxide Level 24, Anion Gap 9, Blood Urea Nitrogen 20H, Creatinine 0.85, Estimat Glomerular Filtration Rate > 60, BUN/Creatinine Ratio 24, Glucose Level 105, Calcium Level 9.4, Corrected Calcium 9.0, Total Bilirubin 0.5, Aspartate Amino Transf (AST/SGOT) 21, Alanine Aminotransferase (ALT/SGPT) 20, Alkaline Phosphatase 91, Total Protein 7.7, Albumin 4.5 A/P-Cardiology Assessment/Admission Diagnosis chest pain, abnormal nuclear stress test, active smoking. Admission Status: Observation Plan coronary angiography, possible PCI. Smoking cessation was strongly recommended. Melvin DOZIER MD Nov 26, 2018 16:35
[2018-11-26] MEDS ORDERED: PATIENT MAY USE OWN MEDS, ALL PO SCH (16:45)
[2018-11-26] MEDS: NS IV 1000 ML 1,000 ML IV SCH ×2 (18:04→18:53)
[2018-11-26] MEDS: TICAGRELOR 90 MG TABLET (BRILINTA) PO SCH (20:12)
[2018-11-27] VITALS (7 sets, daily range): BP systolic 124–169; BP diastolic 76–86
[2018-11-27] MEDS: NS IV 1000 ML 1,000 ML IV SCH (02:35)
[2018-11-27 04:43] LABS: MEAN PLATELET VOLUME 9.1 FL (7.4-10.4); RED CELL DISTRIBUTION WIDTH 13.5 % (10.0-14.5); WHITE BLOOD COUNT 12.9 10^3/uL (4.3-11.0)
[2018-11-27 05:09] LABS: BUN/CREATININE RATIO 17; CALCIUM 9.4 MG/DL (8.5-10.1); CARBON DIOXIDE 23 MMOL/L (21-32); CHLORIDE 107 MMOL/L (98-107); CREATININE SERUM 0.86 MG/DL (0.60-1.30); GFR ESTIMATED > 60; GLUCOSE 102 MG/DL (70-105); POTASSIUM 4.5 MMOL/L (3.6-5.0); SODIUM 140 MMOL/L (135-145)
[2018-11-27] MEDS ORDERED: ACETAMINOPHEN 500 MG TAB (TYLENOL) PO ONE (08:00)
[2018-11-27] MEDS: TICAGRELOR 90 MG TABLET (BRILINTA) PO SCH (08:07)
[2018-11-27] MEDS ORDERED: ASPIRIN E.C. 81 MG (ECOTRIN) TAB PO SCH (09:00)
[2018-11-27] MEDS ORDERED: lisINopril 40 MG (PRINIVIL) TABLET PO SCH (09:00)
[2018-11-27] MEDS ORDERED: lisINopril 20 MG (PRINIVIL) TABLET PO SCH (09:00)
[2018-11-27] MEDS ORDERED: TICA90TA PO (11:34)
[2018-11-27] MEDS ORDERED: ATOR80TA76 PO (11:34)
[2018-11-27] MEDS ORDERED: METO-387 PO (11:34)
[2018-11-27] MEDS ORDERED: ASPI-983 PO (11:34)
--- NOTE | 2018-11-27 13:08 | Cardiology Discharge Summary ---
Diagnosis/Chief Complaint Date of Admission 11/26/2018 Date of Discharge 11/27/2018 Admission Diagnosis chest pain, abnormal nuclear stress test Final/Discharge Diagnosis severe distal RCA stenosis, treated successfully with one drug-eluting stent Chief Complaint/HPI Chief Complaint/HPI this is a 58-year-old gentleman who presented with chest pain. Nuclear stress test showed evidence of inferior apical ischemia. Therefore, the patient was scheduled for coronary angiography. Discharge Summary Procedures severe distal RCA stenosis treated successfully with one drug-eluting stent. Resolute AI 4.0 x 12 mm. Discharge Physical Examination stable. Hospital Course Was the Problem List Reviewed?: Yes unremarkable. Discussion & Recommendations Discussion discharge took over 30 minutes to complete. Discharge instructions were discussed at length with the patient and family. The procedure were discussed at length, diet and exercise, healthy living, medical compliance with Brilinta was strongly emphasized. Follow up appt.: Dr. Dozier in 3-4 weeks. Dicharge Diet: Cardiac Diet Activity as Tolerated: Yes Home Medications Reviewed patient Home Medication Reconciliation performed by pharmacy medication reconciliations field artillery targeting technician and/or nursing. Patients Allergies have been reviewed. Discharge Home Medications: Reviewed and agree with Discharge Medication list on patient's Discharge Instruc tion sheet Condition at discharge stable. Instructions to patient/family discussed with the patient and family. Melvin DOZIER MD Nov 27, 2018 13:08
--- NOTE | 2018-11-27 13:09 | Discharge Inst-Post CATH ---
Discharge Inst-CATH/EP Problems Reviewed?: Yes Final Diagnosis CAD Post Cardiac Cath/EP D/C Inst Follow Up/Plan with Dr Dozier in one month <b>CARDIAC CATH/EP PROCEDURE DISCHARGE INSTRUCTIONS</b> ACTIVITY * Go Home directly and rest. * Limit activity of the leg (or wrist if it was used) for 7 days including aerobics, swimming, jogging, bicycling, etc. * Restrict stair-climbing for 7 days if possible, if not, climb up with your non-cath leg, then bring together on the same step. * Avoid lifting, pushing, pulling or excessive movement of the affected extremity for 7 days. * Customary sexual activity may be resumed after 2 days-use caution not to use a position that strains or causes pain to the affected extremity. * No driving for 24 hours. * NO SMOKING. * Avoid straining for bowel movements for 7 days. * Gentle walking on level ground is allowed. * Returning to work will depend on the type of procedure and the results. Your doctor will discuss this with you. CALL YOUR DOCTOR FOR ANY OF THE FOLLOWING: *If bleeding from the puncture site occurs- Apply gentle pressure to site with clean cloth and call your doctor or EMS. * If a knot or lump forms under the skin, increases in size, or causes pain. * If bruising appears to be worsening or moving further down your leg instead of disappearing. * Temperature above 101 F. CARE OF YOUR GROIN INCISION; * Bruising or purple discoloration of the skin near the puncture site is common. * You may shower only, no bathtub bathing for 5 days. Be careful to avoid slipping as your leg may feel stiff. * If a closure device was used on your femoral artery, please see the attached guide regarding care of the device and your leg. * Leave dressing on FOR 24 hours. CARE OF YOUR WRIST INCISION; * Bruising or purple discoloration of the skin near the puncture site is common. * You may shower. * DO NOT submerge wrist. * Leave dressing on FOR 24 hours. Melvin DOZIER MD Nov 27, 2018 13:09
--- NOTE | 2018-11-27 13:18 | NUR ---
RANDY ADAMS demonstrates understanding of discharge instructions and accurately returns instructions upon questioning. Copy of Post-Discharge Instructions and Medication Discharge Instructions given to patient. RANDY ADAMS is to manage continuing needs after discharge. Patients belongings returned to patient. Skin dry and intact; no breakdown noted. Patient discharged from ICU on 11/27/2018 at 1150. RANDY ADAMS left floor ambulatory, accompanied by EARL.
== END 2018-11-27 11:50 | disposition home or self-care (01) ==
LOC: CATH 11:35 → ICU 16:30 → CATH 11-27 11:50
PROVIDERS: ATTEND Internal Medicine Interventional Cardiology
DX: I25.10 Atherosclerotic heart disease of native coronary artery without angina pectoris (principal); F17.210 Nicotine dependence, cigarettes, uncomplicated; Z79.899 Other long term (current) drug therapy
CPT/HCPCS: 36415; 80048; 80053; 85027; 85347; 85610; 85730; 87081; 93005; 93458

== ENCOUNTER 2020-09-28 05:29 | Outpatient (RCR) | payer OTHER ==
[~2020-09-28] VITALS: Ht 182.9 cm; Wt 93.0 kg
[2020-10-02] MEDS ORDERED: PANT40TA2 PO (10:02)
[2020-10-02] MEDS ORDERED: SUCR1TAB36 PO (10:02)
== END 2020-09-28 11:11 | disposition home or self-care (01) ==
LOC: PREOP 05:29
PROVIDERS: ATTEND Surgery
DX: Z01.812 Encounter for preprocedural laboratory examination (principal); Z20.822 Contact with and (suspected) exposure to COVID-19; Z87.19 Personal history of other diseases of the digestive system
CPT/HCPCS: 87635

== ENCOUNTER → 2020-09-28 | Outpatient (CLI) | payer OTHER ==
[~2020-09-28] MED LIST changes: +AMLO-251 PO; -AMLO10TA7 PO; +ASPI-1073 PO; +ASPI-1238 PO; +ATOR80TA76 PO; +CEPH500T PO; +CLOP75TA28 PO; +DULO60CA59 PO; -LISI10TA2 PO; +LISI10TA25 PO; -LISI40TA PO; +LISI40TA9 PO; +MTP25TSR PO; +TICA90TA PO
== END ==
LOC: LABNPT 07:21
PROVIDERS: ATTEND Surgery
DX: Z20.822 Contact with and (suspected) exposure to COVID-19 (principal)

== ENCOUNTER 2020-10-02 08:21 | Day surgery (SDC) | payer OTHER ==
[~2020-10-02] VITALS: Ht 182.9 cm; Wt 93.0 kg
[2020-10-02] MEDS ORDERED: LACTATED RINGERS 1,000 ML IV STA (08:22)
[2020-10-02] MEDS ORDERED: HURRICAINE EXT TUBE (BENZOCAINE) XX PRN (08:30)
[2020-10-02] MEDS ORDERED: LACTATED RINGERS 1,000 ML IV ONE (08:34)
[2020-10-02 08:45] VITALS: BP 143/102
--- NOTE | 2020-10-02 08:58 | Progress Note-Pre Operative ---
Pre-Operative Progress Note H&P Reviewed The H&P was reviewed, patient examined and no changes noted. Time Seen by Provider: 08:57 Date H&P Reviewed: Oct 02, 2020 Time H&P Reviewed: 08:57 Pre-Operative Diagnosis: Hx of Zafar's DEWAYNE SIN DO Oct 02, 2020 08:58
[2020-10-02] MEDS ORDERED: MIDAZOLAM 2 MG/2 ML (VERSED) VIAL ONE (09:35)
[2020-10-02] MEDS ORDERED: proPOfol 200 MG/20 ML (DIPRIVAN) VIAL IV ONE (09:35)
[2020-10-02 10:00] VITALS: BP 118/72
--- NOTE | 2020-10-02 10:01 | Progress Note-Post Operative ---
Post-Operative Progess Note Surgeon (s)/Manager Activities (s) Surgeon DEWAYNE SIN DO Manager Activities: none Pre-Operative Diagnosis Hx of Zafar's Post-Operative Diagnosis Gastric Ulcer Duodenal Ulcer Hiatal Hernia Zafar's Esophagus Procedure & Operative Findings Date of Procedure 10/02/20 Procedure Performed/Findings EGD with bx PROCEDURE NOTE: After informed consent was obtained, the patient was brought to the endoscopy suite, placed in bed in left lateral decubitus position. He was administered IV sedation by the MATERIALS ASSISTANT who then monitored vitals the entire time, heart rate, blood pressure and pulse ox and the scope was inserted down the mouth through the esophagus into the stomach. On the way down, noted some severe esophagitis; looked like Zafar's, took a picture, pushed into the stomach, pushed past the antrum into the duodenum. I saw an ulcer, not bleeding and took a picture and then did a biopsy of it. Pulled back and did a biopsy of the antrum; this also looked like an ulcer. Then retroflexed the scope, saw medium sized hiatal hernia, took a picture of this and then pulled the scope into the GE junction, took another picture of the hiatal hernia and then did two biopsies; one of the GE junction and one up a little more in the eophagus. The erosion went up a good 4 cm. Pushed the scope back into the stomach, suctioned all the air out of the stomach. At this point pulled the scope up the esophagus and out the mouth. The patient tolerated the procedure, and he recovered in endoscopy suite. Anesthesia Type IV sedation by MATERIALS ASSISTANT Estimated Blood Loss Estimated blood loss (mL): scant Specimens/Packing Specimens Removed duodenal bx Antral ulcer GE jxn bx DEWAYNE SIN DO Oct 02, 2020 10:01
[2020-10-02] MEDS ORDERED: PANT40TA2 PO (10:02)
[2020-10-02] MEDS ORDERED: SUCR1TAB36 PO (10:02)
--- NOTE | 2020-10-02 10:03 | Endoscopy Discharge Instruct ---
Endo Procedure/Findings Findings 1.: Gastric Ulcer 2.: Duodenal Ulcer 3.: Hiatal Hernia 4.: Zafar's Esophagus Discharge Instructions - Activity: You might feel a little sleepy until tomorrow. This is due to the medicine you received to relax you. Until tomorrow, you should: NOT drive a car, operate machinery or power tools. NOT drink any alcoholic beverages. NOT make any important decisions or sign importortant papers. Do not return to work until tomorrow, unless otherwise instructed. Resume previous activities tomorrow. Diet: Start by taking liquids. If you tolerate liquids, advance to solid food. 1.: Other Recommendation (EGD in 6 months) Notify Physician - If you experience excessive bleeding, unusual abdominal pain, fever, or chest pain, contact your doctor immediately. DEWAYNE SIN DO Oct 02, 2020 10:03
[2020-10-02 10:05] VITALS: BP 115/63
[2020-10-02 10:20] VITALS: BP 115/63
[2020-10-02 10:32] VITALS: BP 115/63
--- NOTE | 2020-10-02 12:11 | Anesthesia-General Post-Op ---
MAC Patient Condition Mental Status/LOC: Same as Preop Cardiovascular: Satisfactory Nausea/Vomiting: Absent Respiratory: Satisfactory Pain: Controlled Complications: Absent Post Op Complications Complications None Follow Up Care/Instructions Patient Instructions None needed. Anesthesiology Discharge Order Discharge Order Patient is doing well, no complaints, stable vital signs, no apparent adverse anesthesia problems. No complications reported per nursing. COLLETTE FERREIRA CRNA Oct 02, 2020 12:11
== END 2020-10-02 10:34 | disposition home or self-care (01) ==
LOC: ENDO 08:21
PROVIDERS: ATTEND Surgery
DX: K25.9 Gastric ulcer, unspecified as acute or chronic, without hemorrhage or perforation (principal); K29.50 Unspecified chronic gastritis without bleeding; K44.9 Diaphragmatic hernia without obstruction or gangrene; K26.9 Duodenal ulcer, unspecified as acute or chronic, without hemorrhage or perforation; K22.70 Barrett's esophagus without dysplasia; K29.80 Duodenitis without bleeding; I10 Essential (primary) hypertension; I25.10 Atherosclerotic heart disease of native coronary artery without angina pectoris; I35.0 Nonrheumatic aortic (valve) stenosis; J44.9 Chronic obstructive pulmonary disease, unspecified; G62.9 Polyneuropathy, unspecified; F32.9 Major depressive disorder, single episode, unspecified; K21.9 Gastro-esophageal reflux disease without esophagitis; G89.29 Other chronic pain; M19.90 Unspecified osteoarthritis, unspecified site; F17.210 Nicotine dependence, cigarettes, uncomplicated; Z79.82 Long term (current) use of aspirin; Z79.899 Other long term (current) drug therapy; Z79.02 Long term (current) use of antithrombotics/antiplatelets
CPT/HCPCS: 88305

== ENCOUNTER → 2020-12-18 | Outpatient (CLI) | payer OTHER | LOC: CARD 12:36 | PROVIDERS: ATTEND Internal Medicine Cardiovascular Disease | DX: I35.1 Nonrheumatic aortic (valve) insufficiency (principal); I51.7 Cardiomegaly | CPT/HCPCS: 93306 ==